=== PATIENT | male | born 1975 | race Caucasian/White ===

== ENCOUNTER → 2016-06-15 | Outpatient (CLI) | payer OTHER ==
[~2016-06-15] MED LIST: ACETAMINOPHEN325 MG PO; ALBUTEROL MININEB NEB; ALBUTEROL0.83 MG/ML NEB; ALLERCLEAR10 MG PO; AMITIZA24 MCG GT; AMITIZA24 MCG PO; ARTHRITIS PAIN650 M3 PO; BACID PO; BISACODYL10 MG/SUP3 RC; BISACODYL10 MG/SUPP PR; CALCIUM 500 + D1 TAB PO; CARAFATE1 G PO; CENTRUM PO; CERTAGEN PO; CERTAVITE-LUTEI1 TA1 PO; CETIRIZINE HCL10 MG PEG; CLARITIN R10 MG REDI GT; CLARITIN R10 MG REDI PO; CLARITIN10 MG PO; CORRECTOL5 MG PO; COUGH SYRU100 MG/5 M PO; DIASTAT ACUDIAL1 KIT; DIASTAT10 MG PR; DULCOLAX10 MG/SUPP RC; E.E.S. 200200 MG/51 PO; EES; ENEMA READY TO133 ML PR; ENEMA133 M1 PR; ERYTHROMYC200 MG/5 M PEG; ERYTHROMYC200 MG/5 M PO; FAMOTIDINE PO; FAMOTIDINE20 M1 PO; FAST RELIEF LAX10 MG PR; FEROSUL220 MG/5 M PO; FLONASE 0.05% N16 G1; FYCOMPA2 MG GT; FYCOMPA6 MG PO; FYCOMPA8 MG PEG; FYCOMPA8 MG PO; GENEBS325 MG PO; GENTLE LAXATIVE10 MG PR; HEMOCYTE324 MG PO; KEPPRA XR500 MG GT; KEPPRA1000 MG PEG; KEPPRA1000 MG PO; KEPPRA500 M1 PO; KEPPRA500 M2 PO; KEPPRA750 MG PO; LACTULOSE10 G/15 M1 PO; LACTULOSE10 G/15 ML PO; LAMICTAL GT; LAMICTAL ODT200 MG PO; LAMICTAL PEG; LAMICTAL PO; LAMICTAL100 MG PO; LAMICTAL150 MG PO; LAMICTAL25 MG PO; LAMOTRIGINE100 MG GT; LAMOTRIGINE100 MG PO; LAMOTRIGINE200 MG PO; LAMOTRIGINE25 M1 PO; LEVETIRACETAM1000 MG PO; LOPRESSOR PO; MAPAP325 M1 PO; MAPAP325 MG PO; METOPROLOL PO; METOPROLOL SUCC25 MG PO; MICRO-K PO; MILK OF MAGNESIA PO; MINERAL OIL1 ML PR; MIRALAX17 G2 DT; MIRALAX17 GM PEG; MIRALAX255 GM PO; NEXIUM GT; NEXIUM PO; NEXIUM40 MG/PACK; OYSTER CALCIUM500 MG PO; OYSTER SHELL C1 EAC3 PO; OYSTER SHELL CA1 TA4 PO; PANCRELIPASE 51 EACH; PANCRELIPASE 51 EACH PO; PANCRELIPASE PO; PEG OINTMENT B454 GM GT; POLYETHYLENE GLY1 GM PO; PRILOSEC PO; PROBIOTIC1 EACH PO; PROVENTIL INH0.5 ML NEB; PROVENTIL0.83 MG/ML IH; PROVENTIL0.83 MG/ML INH; SENNA CONCENTR8.6 MG PO; SENNA LAXATIVE8.6 M1 PO; SENNA S TABLET1 TAB PO; SENNA-LAX8.6 M1 PO; SENNA8.6 M1 PO; SENNA8.8 MG/5 M PO; SENNA8.8 MG/51 PO; SUDOGEST60 MG PO; THERAGRAN-M AD1 EACH PO; THERAGRAN1 TAB PO; TYLENOL325 M1 PO; VASOLEX OINTMEN30 GM TP; VIMPAT100 MG GT; VIMPAT200 MG GT; VIMPAT200 MG PO; [UNRECOGNIZED DRUG - OTHER]
== END | disposition home or self-care (01) ==
LOC: CRAD 09:31
DX: R10.13 Epigastric pain (principal)
CPT/HCPCS: 74230; 92611

== ENCOUNTER 2016-10-05 08:18 | Emergency (ER) | payer OTHER ==
--- NOTE | ~2016-10-05 | CT71 ---
[facility] A Service of [facility] RADIOLOGY TEXT RESULTS PATIENT: GREGG MANN LOCATION: [facility] : 73 UNIT #: [id number] AGE: [address]: Monisha Olson APRN SEX: M ORDER DR: [id number] [facility] [address] [place], [place] [address] [id number] E MR#: [id number] #: [id number] NAME: GREGG MANN : 1975 SEX: M STUDY DATE/TIME: 10/05/2016 10:47 UNIT: [facility] ROOM: STUDY DESCRIPTION: CT Head Wo Contrast Attending Physician: Monisha Olson A.P.R.N. Ordering Physician: Edouard Resendiz M.D. Primary Care Physician: Primary Care Physician No MEDICAL IMAGING REPORT This report is preliminary unless electronic signature is present EXAM CT head, noncontrast, 10/05/2016 HISTORY 41-year-old male with history of congenital developmental disability/mental retardation presenting to the ED after head injury. He reportedly struck his head on the picture frame last evening. His caretakers have noted confusion/mental status changes and 1 episode of [address]. TECHNIQUE CT examination of the head was performed without contrast. The images are significantly degraded by patient motion artifact, despite personnel applying manual restraint during the exam. This CT exam was performed with one or more of the following radiation dose reduction techniques: automatic exposure control, adjustment of mA and/or kV according to patient size, and iterative reconstruction. FINDINGS No acute intracranial abnormality is identified, there is no visible skull fracture. No evidence of intracranial hemorrhage, cerebral edema, mass, mass effect or progressive ventricular enlargement. No change since the previous study of 06/05/2014. Note is made of extensive opacification of the visualized ethmoid and maxillary sinuses. IMPRESSION 1. Technically limited study as noted. 2. No evidence of acute intracranial abnormality. No visible skull fracture. 3. No significant change since 06/05/2014. [facility] A Service [facility] RADIOLOGY TEXT RESULTS PATIENT: GREGG MANN LOCATION: [facility] : 73 UNIT #: [id number] AGE: [address]: Monisha Olson APRN SEX: M ORDER DR: 4. Extensive bilateral sinus disease. Dictated by... Jose Rocha M.D. THIS IS AN ELECTRONICALLY VERIFIED REPORT Jose Rocha M.D. at 10/05/2016 2:07 PM LEILA/delfino TD: 10/05/2016 11:28 JOB #: [id number] MEDICAL IMAGING REPORT Page 1 of 1 COPY
--- NOTE | ~2016-10-05 | CR72 ---
[facility] A Service of [facility] RADIOLOGY TEXT RESULTS PATIENT: GREGG MANN LOCATION: [facility] : 73 UNIT #: [id number] AGE: [address]: Monisha Olson APRN SEX: M ORDER DR: [id number] [facility] [address] [place], [place] [address] [id number] E MR#: [id number] Acc #: [id number] NAME: GREGG MANN : 1975 SEX: M STUDY DATE/TIME: 10/05/2016 09:55 UNIT: [facility] ROOM: STUDY DESCRIPTION: CR Chest Single View Portable Attending Physician: Monisha Olsno A.P.R.N. Ordering Physician: Ed Doctor [id number] [facility] Primary Care Physician: Primary Care Physician No MEDICAL IMAGING REPORT This report is preliminary unless electronic signature is present EXAM Chest portable 10/05/2016 0955 hours HISTORY 41-year-old man with 1-day history of nausea, vomiting and congestion. COMPARISON 05/23/2016. FINDINGS Portable upright film is limited by leftward rotation of the patient. Heart size is felt to be stable with stable stimulator device with power pack over the left upper chest and leads extending cephalad into the left neck. The left upper lung and left lung base are clear. There is increased parenchymal density suggested in the right midlung right lung base somewhat difficult to assess given the degree of rotation. Pneumonia is suspected. IMPRESSION Technically limited film due to significant leftward rotation and low lung volumes. The left lung appears clear. There is patchy airspace density suggested in the medial right lung base similar to 05/23/2016. Finding is concerning for pneumonia. Consider a followup two-view chest film when possible. STAT * RESULT Dictated by... Lizet Allison M.D. THIS IS AN ELECTRONICALLY VERIFIED REPORT [facility] A Service of [facility] RADIOLOGY TEXT RESULTS PATIENT: GREGG MANN LOCATION: [facility] : 73 UNIT #: [id number] AGE: [address]: Monisha Olson APRN SEX: M ORDER DR: Lizet Allison M.D. at 10/05/2016 2:26 PM ANA MARIA/erlin TD: 10/05/2016 10:14 JOB #: [id number] MEDICAL IMAGING REPORT Page 1 of 1 COPY
[2016-10-05 10:49] LABS: BASOPHIL# 0.1 X10e3 (0-0.3); DIFF IND NO; EOSINOPHIL# 0.3 X10e3 (0-0.7); EOSINOPHIL% 6.2 % (0.0-7.0); HEMATOCRIT 38.3 % (38.0-50.0); HEMOGLOBIN 12.7 gm/dL (13.0-16.0); LYMPHOCYTE% 19.7 % (17.0-45.0); MEAN CELL VOLUME 90.4 FL (83-96); MEAN CORPUSCULAR HEMOGLOBIN 29.9 PG (28-34); MEAN CORPUSCULAR HGB CONC 33.1 g/dL (30-36); MEAN PLATELET VOLUME 7.1 FL (6.5-11.5); MONOCYTE# 0.6 X10e3 (0-1.0); MONOCYTE% 11.8 % (3.0-12.0); NEUTROPHIL# 3.2 X10e3 (1.5-7.1); NEUTROPHIL% 61.3 % (40-75); PLATELET COUNT 202 X10e3 (140-420); RED BLOOD COUNT 4.23 X10e (3.90-5.60); RED CELL DISTRIBUTION WIDTH 12.8 % (11.0-15.5); WHITE BLOOD COUNT 5.3 X10e3 (4.0-10.5)
[2016-10-05 11:14] LABS: ALBUMIN SERUM 3.8 g/dL (3.5-5.0); BILIRUBIN, DIRECT 0.1 mg/dL (0.0-0.2); BILIRUBIN,INDIRECT 0.5 mg/dL (0.0-0.9); BILIRUBIN,TOTAL 0.6 mg/dL (0.2-2.0); CALCIUM SERUM 8.9 mg/dL (8.4-10.2); GLOM FILT RATE Estimated 92.4 mL/min (>60); POTASSIUM 3.7 mmol/L (3.5-5.1); PROTEIN TOTAL SERUM 7.2 g/dL (6.0-8.3)
== END 2016-10-05 14:06 | disposition home or self-care (01) ==
LOC: CED 08:18
PROVIDERS: Nurse Practitioner
DX: S00.93XA Contusion of unspecified part of head, initial encounter (principal); S00.01XD Abrasion of scalp, subsequent encounter; Z79.899 Other long term (current) drug therapy; Z88.1 Allergy status to other antibiotic agents; W20.8XXA Other cause of strike by thrown, projected or falling object, initial encounter; Y92.009 Unspecified place in unspecified non-institutional (private) residence as the place of occurrence of the external cause
CPT/HCPCS: 36415; 51701; 70450; 71010; 80048; 80076; 83690; 85025; 99284

== ENCOUNTER → 2016-12-15 | Outpatient (CLI) | payer OTHER | END | disposition home or self-care (01) | LOC: CSSDAY 12:11 | DX: M81.0 Age-related osteoporosis without current pathological fracture (principal) | CPT/HCPCS: 96372; J0897 ==